=== PATIENT | male | born 1970 | race Caucasian/White ===

== ENCOUNTER 2017-08-03 04:13 | Emergency (ER) | payer SELFPAY ==
[~2017-08-03] VITALS: Ht 180.3 cm; Wt 82.7 kg
[2017-08-03 04:16] VITALS: TEMP 97.8
[2017-08-03 04:45] LABS: COLLECTION METHOD CLEAN CATCH
[2017-08-03 04:48] LABS: BASO # 0.1 (0.0-0.2); BASO % 1.1 % (0.0-2.0); EOS # 0.3 (0.0-0.7); EOS % 4.1 % (0-4.0); GRAN # 2.4 (1.4-6.5); GRAN % 37.5 % (42.2-75.2); HEMATOCRIT 40.1 % (42.0-52.0); HEMOGLOBIN 13.8 g/dl (13.5-18.0); LYMPH % 46.7 % (20.0-51.0); MEAN CELL VOLUME 89 fl (80.0-100.0); MEAN CORPUSCULAR HEMOGLOBIN 31 pg (27.0-31.0); MEAN CORPUSCULAR HGB CONC 34 g/dl (33.0-37.0); MEAN PLATELET VOLUME 9.7 fl (7.4-10.4); MONO # 0.7 (0.1-0.6); MONO % 10.3 % (1.7-9.3); PLATELET COUNT 237 K/mm3 (130-400); RED BLOOD COUNT 4.49 M/mm3 (4.20-5.60); REDCELL DISTRIBUTION WIDTH-CV 13.2 % (11.5-14.5)
[2017-08-03 04:56] LABS: MUCOUS Present /lpf; PH 5 (5-8); SQUAMOUS EPITHELIAL None Seen /hpf; URINE APPEARANCE Cloudy; URINE BACTERIA None Seen /hpf; URINE BILIRUBIN Negative (NEGATIVE); URINE BLOOD 3+ (NEGATIVE); URINE COLOR Amber; URINE GLUCOSE Negative (NEGATIVE); URINE KETONE Negative (NEGATIVE); URINE LEUKOCYTE ESTERASE Negative (NEGATIVE); URINE NITRATE Negative (NEGATIVE); URINE PROTEIN(semi-quant) 2+ (NEGATIVE); URINE RBC >50 /hpf; URINE UROBILINOGEN Negative (NEGATIVE)
[2017-08-03 04:58] LABS: ALBUMIN 3.9 gm/dL (3.5-5.0); BILIRUBIN,TOTAL 0.5 mg/dL (0.0-1.0); CALCIUM 9.4 mg/dL (8.4-10.2); CREATININE, serum 1.13 mg/dL (0.66-1.25); POTASSIUM 3.8 mmol/L (3.4-5.0); TOTAL PROTEIN 7.1 gm/dL (6.4-8.2)
[2017-08-03] MEDS ORDERED: ZOFRAN ODT4 MG PO (05:55)
[2017-08-03] MEDS ORDERED: PERCOCET 325 MG1 TA2 PO (05:55)
[2017-08-03 06:02] VITALS: BP 128/88; PULSE 72
== END 2017-08-03 06:29 | disposition home or self-care (01) ==
LOC: COL.ER 04:13
PROVIDERS: Emergency Medicine
DX: N13.2 Hydronephrosis with renal and ureteral calculous obstruction (principal)
CPT/HCPCS: J1885; J2405; J7030

== ENCOUNTER 2017-08-03 11:45 | Day surgery (SDC) | payer SELFPAY ==
[~2017-08-03] VITALS: Ht 180.3 cm; Wt 82.7 kg
[~2017-08-03 11:45] MED LIST: PERCOCET 325 MG1 TA2 PO; ZOFRAN ODT4 MG PO
[2017-08-03 12:44] VITALS: BP 120/70; PULSE 58; TEMP 97.8
[2017-08-03 15:09] VITALS: BP 101/67; PULSE 68
[2017-08-03 15:24] VITALS: BP 109/67; PULSE 63
[2017-08-03 15:39] VITALS: BP 112/69; PULSE 71
== END 2017-08-03 16:05 | disposition home or self-care (01) ==
LOC: SDCO 11:45
DX: N20.1 Calculus of ureter (principal); Z87.442 Personal history of urinary calculi; Z80.9 Family history of malignant neoplasm, unspecified
CPT/HCPCS: J0690; J1200; J1885; J2704; J3010; J7120

== ENCOUNTER → 2017-08-16 | Outpatient (CLI) | payer SELFPAY | LOC: COL.RAD 13:00 | DX: N20.0 Calculus of kidney (principal) ==

== ENCOUNTER 2019-08-05 21:33 | Observation (INO) | payer OTHER ==
[~2019-08-05] VITALS: Ht 180.3 cm; Wt 85.3 kg
[2019-08-05 22:08] LABS: BASO # 0.1 (0.0-0.2); BASO % 0.3 % (0.0-2.0); EOS % 0.1 % (0-4.0); GRAN # 13.6 (1.4-6.5); HEMATOCRIT 44.4 % (42.0-52.0); HEMOGLOBIN 14.8 g/dl (13.5-18.0); LYMPH # 1.1 (1.2-3.4); MEAN CELL VOLUME 91 fl (80.0-100.0); MEAN CORPUSCULAR HEMOGLOBIN 30 pg (27.0-31.0); MEAN CORPUSCULAR HGB CONC 33 g/dl (33.0-37.0); MEAN PLATELET VOLUME 9.8 fl (7.4-10.4); MONO # 0.6 (0.1-0.6); MONO % 4.1 % (1.7-9.3); PLATELET COUNT 277 K/mm3 (130-400); RED BLOOD COUNT 4.89 M/mm3 (4.20-5.60); REDCELL DISTRIBUTION WIDTH-CV 12.8 % (11.5-14.5)
[2019-08-05 22:21] LABS: ALANINE AMINOTRANSFERASE 48 U/L (4-49); ALBUMIN 4.7 gm/dL (3.5-5.0); ALKALINE PHOSPHATASE 66 U/L (50-136); ANION GAP 8 mmol/L (7-16); AST,SGOT 35 U/L (15-37); BILIRUBIN,TOTAL 0.6 mg/dL (0.0-1.0); BLOOD UREA NITROGEN 20 mg/dL (9-20); CALCIUM 9.8 mg/dL (8.4-10.2); CARBON DIOXIDE 27 mmol/L (22-30); CHLORIDE 100 mmol/L (98-107); CREATININE, serum 1.53 (0.66-1.25); GLUCOSE 145 mg/dL (74-106); POTASSIUM 4.6 mmol/L (3.4-5.0); SODIUM 136 mmol/L (137-145)
[2019-08-05 22:22] LABS: C-REACTIVE PROTEIN < 0.5 mg/dL (0.0-0.9)
[2019-08-06] VITALS (10 sets, daily range): BP systolic 105–143; BP diastolic 67–90; PULSE 62–90; TEMP 97.9–99
--- NOTE | 2019-08-06 00:55 | NUR ---
To room 324 from ED via wheelchair. Admission assessment complete. Oriented to room/policy. Plan of care discussed for pain control/surgery in AM. Denies questions/concerns. Call light in reach. Will monitor.
[2019-08-06 06:10] LABS: COLLECTION METHOD CLEAN CATCH
[2019-08-06 06:19] LABS: MUCOUS Present /lpf; PH 5 (5-8); SQUAMOUS EPITHELIAL None Seen /hpf; URINE APPEARANCE Clear; URINE BACTERIA None Seen /hpf; URINE BILIRUBIN Negative (NEGATIVE); URINE BLOOD 2+ (NEGATIVE); URINE COLOR Yellow; URINE GLUCOSE Negative (NEGATIVE); URINE KETONE Negative (NEGATIVE); URINE LEUKOCYTE ESTERASE Negative (NEGATIVE); URINE NITRATE Negative (NEGATIVE); URINE PROTEIN(semi-quant) Negative (NEGATIVE); URINE RBC 0-2 /hpf; URINE UROBILINOGEN Negative (NEGATIVE)
--- NOTE | 2019-08-06 07:42 | NUR ---
Dr Jorge here to see patient.
--- NOTE | 2019-08-06 08:58 | NUR ---
Patient alert and oriented, answers questions appropriately. See assessment. No c/o urinary burning, frequency or hesitancy. No c/o flank or abdominal pain. No c/o at this time.
--- NOTE | 2019-08-06 09:07 | NUR ---
[facility] met with the patient to complete initial intake. The patient lives in [place] with Glendy Jose. The patient denies DME use and is independent with ADLs. The patient does not have a PCP but was interested in setting up with Dr. Billy. Dr. Billy is not taking new patient at this time. The patient will discuss options with Glendy then inform ALM[facility]. The patient receives medications from [facility] pharmacy. The patient does not have advanced directives in the EMR but was interested in obtaining DPOA-HC form. Form provided. The patient states he does have children over 18 but has been with Glendy over 10 years. He will discuss the form with her. The patient plans to return home at discharge. Will continue to follow.
--- NOTE | 2019-08-06 09:51 | NUR ---
First visit from the stoper. Chaplain shepherd. No other needs right now.
--- NOTE | 2019-08-06 12:39 | NUR ---
To surgery at this time.
--- NOTE | 2019-08-06 14:00 | NUR ---
Patient returned from surgery. Assessment unchanged.
--- NOTE | 2019-08-06 16:51 | NUR ---
Discharge instructions reviewed with patient and spouse, verbalized understanding. Discharged ambulatory to auto/home with family at 1640.
== END 2019-08-06 16:40 | disposition home or self-care (01) ==
LOC: COL.ER 21:33 → SURG 22:49
PROVIDERS: Emergency Medicine; ADMIT Urology
DX: N20.1 Calculus of ureter (principal)
CPT/HCPCS: G0378; J0690; J0696; J1885; J1940; J2270; J2405; J2704; J3010; J7030